=== PATIENT | male | born 1985 | race African-American/Black ===

== ENCOUNTER 2018-08-26 01:46 | Emergency (ER) | payer SELFPAY ==
[~2018-08-26] VITALS: Ht 182.9 cm; Wt 78.0 kg
[2018-08-26] MEDS ORDERED: TRAMADOL 50MG TABLET PO ONE (03:00)
[2018-08-26] MEDS ORDERED: HYDROCODONE/ACETAMINOPHEN 5/325MG TABLET PO ONE (03:00)
[2018-08-26 05:28] VITALS: BP 129/88
[2018-08-26] MEDS ORDERED: IBUPROFEN 800MG TABLET PO ONE (05:30)
== END 2018-08-26 05:30 | disposition home or self-care (01) ==
LOC: ER 01:46
DX: S60.021A Contusion of right index finger without damage to nail, initial encounter (principal); F17.200 Nicotine dependence, unspecified, uncomplicated; F12.10 Cannabis abuse, uncomplicated; W22.8XXA Striking against or struck by other objects, initial encounter; Y93.89 Activity, other specified; Y92.89 Other specified places as the place of occurrence of the external cause; Y99.8 Other external cause status
CPT/HCPCS: 29130; 73140; 99284